=== PATIENT | male | born 1955 | race Caucasian/White ===

== ENCOUNTER 2022-09-15 11:09 | Emergency (ER) | payer MEDICARE, OTHER, SELFPAY ==
[2022-09-15] VITALS (27 sets, daily range): BP systolic 107–148; BP diastolic 57–111; PULSE 67–166; RESP 12–24; TEMP 36.7; O2SAT 97–99; BMI 23.3
--- NOTE | 2022-09-15 11:27 | ED.ARRPALP ---
HPI - Arrhythmia/Palpitations General Stated Complaint: high heart rate, lightheaded Time Seen by Provider: 09/15/22 11:26 History of Present Illness HPI narrative: Gentleman comes to the ER today because of persistent elevated heart rate. He 1st noticed it at about 11:00 a.m. last night but it was not associated with dyspnea or shortness of breath or chest pain. He is not been sick with a fever or anything else. He has had intermittent atrial fibrillation and tachycardia in the past but nothing recently. Not ever had any treatment for it. Was recommended to receive an ablation which he never did. He can think of nothing unusual about his behavior or activities or diet over the past day or so. He has not had fever or chills or cough or any infectious symptoms. He came in today because he thought the heart rate had been fast for too long without spontaneous resolution and he thought he would get it investigated. Exam Narrative Exam Narrative: GENERAL: Alert, cooperative and in no distress. HEAD: Atraumatic. Normocephalic. EYES: Sclera are clear without icterus. Extraocular movements are full. ENT: No rhinorrhea. Oropharynx is moist. Mouth exam is benign. NECK: Supple. Full range of motion. CARDIOVASCULAR: Tachycardia. Regular. Without murmur gallop or rub. RESPIRATORY: Clear to auscultation. Breath sounds equal bilaterally. No wheezes, rales, or rhonchi. GASTROINTESTINAL: Abdomen soft, non-tender, nondistended. EXTREMITIES: No edema, full range of motion. No obvious trauma. BACK: Normal inspection, no CVA tenderness. NEURO: Nonfocal examination, normal speech, normal gait. SKIN: No rash or erythema of visible areas PSYCH: Normally oriented. Normal range of affect. Appropriate behavior Course Course Course Narrative: Gentleman with asymptomatic tachycardia. EKG shows atrial flutter at what looks to be a 3-1 block. His current rate is 162 on the EKG. Will administer diltiazem to try to control the rate. Orders Ordered: ED Orders 09/15/22 11:26 CBC Auto Diff [Complete Blood Count AUTO DIFF] Stat CMP [Comprehensive Metabolic Panel] Stat COVID19 -Nasal RAPID Stat 09/15/22 11:27 EKG-12 Lead Stat
[2022-09-15 11:36] LABS: Add Manual Diff / Slide Review NO; Basophils Absolute Auto 0 /uL (0-100); Basophils Percent Auto 0.5 % (0-2); Eosinophils Absolute Auto 0 /uL (0-450); Eosinophils Percent Auto 0.3 % (2-4); Hematocrit 50.5 % (41-53); Hemoglobin 17.3 g/dL (13.5-17.5); Lymphocytes Absolute Auto 1300 /uL (1100-4500); Lymphocytes Percent Auto 17.6 % (25-40); Mean Corpuscular HGB Conc 34.3 % (30-36); Mean Corpuscular Hemoglobin 32.4 PG (26-34); Mean Corpuscular Volume 94.4 fL (80-100); Monocytes Absolute Auto 700 /uL (0-900); Monocytes Percent Auto 9.4 % (3-14); Neutrophils Absolute Auto 5200 /uL (1500-7000); Neutrophils Percent Auto 72.2 % (50-75); Platelet Count 292 X10^3/uL (150-400); Red Blood Cell Count 5.35 X10^6/uL (4.5-5.9); Red Cell Distribution Width 13.5 % (11.6-14.8); White Blood Cell Count 7.2 X10^3/uL (4.5-11.0)
[2022-09-15 11:41] LABS: Alanine Aminotransferase 21 IU/L (<50); Albumin 4.7 g/dL (3.5-5.0); Albumin Globulin Ratio 1.4 (1.0-2.8); Alkaline Phosphatase 73 U/L (38-126); Aspartate Aminotransferase 24 IU/L (17-59); BUN Creatinine Ratio 15.4 (6-22); Bilirubin Total 0.8 mg/dL (0.2-1.3); Blood Urea Nitrogen 16 mg/dL (9-20); Calcium 9.9 mg/dL (8.4-10.2); Carbon Dioxide 31 mmol/L (22-32); Chloride 99 mmol/L (98-107); Estimated Glomerular Filt Rate > 60 mL/min (>60); Globulin 3.3 g/dL (1.7-4.1); Glucose 111 mg/dL (80-110); HEMOLYSIS < 15 (0-50); Potassium 3.9 mmol/L (3.4-5.1); Sodium 140 mmol/L (137-145)
[2022-09-15] MEDS: dilTIAZem 5 MG/ML SDV 20 MG IV (11:43)
[2022-09-15 12:50] LABS: COVID19 -Nasal RAPID Negative (Negative)
--- NOTE | 2022-09-24 16:10 | PC.NURSE ---
Patient called stating he had an episode of increased heart rate last night and took the diltiazem as instructed by Dr. Vasquez. Pt states he read the label which instructs to take medication daily. Read over discharge instructions with clothing manager Kate and read pt discharge recommendation to take daily once episode occurs. 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
== END 2022-09-15 13:28 | disposition home or self-care (01) ==
PROVIDERS: Emergency Provider Family Medicine Addiction Medicine
DX: I48.92 Unspecified atrial flutter (principal); Z20.822 Contact with and (suspected) exposure to COVID-19
CPT/HCPCS: 36415; 80053; 85025; 87635; 93005; 93010; 96374; 99284; C9803

== ENCOUNTER → 2024-10-15 11:11 | Outpatient (CLI) | payer MEDICARE, OTHER, SELFPAY ==
--- NOTE | 2024-10-15 11:12 | DI.RAD.S_ITS ---
PROCEDURE: XR CHEST 2V INDICATIONS: Productive cough x 2 weeks TECHNIQUE: 2 views of the chest were acquired. COMPARISON: None. FINDINGS AND IMPRESSION: No airspace consolidation. No pleural effusions. Normal heart size. Degenerative osseous changes. Dictated by: Abiodun Mcmahon M.D. on 10/15/2024 at 11:32 Approved by: Abiodun Mcmahon M.D. on 10/15/2024 at 11:32
== END ==
PROVIDERS: Referring Provider Student in an Organized Health Care Education/Training Program; Visit Provider Student in an Organized Health Care Education/Training Program
DX: R05.8 Other specified cough (principal); R53.83 Other fatigue
CPT/HCPCS: 71046